=== PATIENT | female | born 1980 | race Caucasian/White ===

== ENCOUNTER 2024-07-15 10:55 | Emergency (ER) | payer OTHER ==
[~2024-07-15] VITALS: Ht 162.6 cm; Wt 64.0 kg
[2024-07-15 11:38] VITALS: O2SAT 99
[2024-07-15] MEDS: LIDOCAINE HCL 1% 20ML VIAL INFIL ONE (12:00)
[2024-07-15] MEDS ORDERED: TETANUS, DIPHTHERIA, PERTUSSIS VAC/PF 0.5ML (>10YR OLD) IM ONE (12:00)
[2024-07-15] MEDS: TETANUS, DIPHTHERIA, PERTUSSIS VAC/PF 0.5ML (>10YR OLD) IM ONE (14:01)
[2024-07-15 15:00] VITALS: BP 120/74; PULSE 65; RESP 16; TEMP 36.6; O2SAT 99
== END 2024-07-15 15:04 | disposition home or self-care (01) ==
LOC: ER 10:55
DX: S61.216A Laceration without foreign body of right little finger without damage to nail, initial encounter (principal); Z98.890 Other specified postprocedural states; X58.XXXA Exposure to other specified factors, initial encounter; Y93.89 Activity, other specified; Y92.89 Other specified places as the place of occurrence of the external cause; Y99.8 Other external cause status
CPT/HCPCS: 99283; 90715; 12002; 90471; J3490